=== PATIENT | female | born 1975 | race Asian ===

== ENCOUNTER → 2017-10-04 | Outpatient (CLI) | payer OTHER ==
[~2017-10-04] MED LIST: CETI10TA24 PO; CHOL40002 PO; CLOB15CR19 TP; FLUT9.9S16 NAS; MONT10TA6 PO
== END ==
LOC: STAR 09:26
PROVIDERS: ATTEND Otolaryngology
DX: Z02.9 Encounter for administrative examinations, unspecified (principal)

== ENCOUNTER 2017-10-16 07:00 | Day surgery (SDC) | payer OTHER ==
[~2017-10-16] VITALS: Ht 157.5 cm; Wt 67.5 kg
[2017-10-16] MEDS ORDERED: MIDAZOLAM 1 MG/ML, 2ML ONE (07:16)
[2017-10-16] MEDS ORDERED: FENTANYL PF 250 MCG/5ML ONE (07:16)
[2017-10-16] MEDS ORDERED: PROPOFOL 10 MG/ML, 20ML ONE (07:20)
[2017-10-16] MEDS ORDERED: ROCURONIUM 10 MG/ML,10ML ONE (07:21)
[2017-10-16] MEDS ORDERED: CEFAZOLIN 1,000 MG ONE ×2 (07:22)
[2017-10-16] MEDS ORDERED: WATER-INJECTION,STERILE 10 ML IV ONE (07:22)
[2017-10-16] MEDS ORDERED: GLYCOPYRROLATE 0.4 MG/2 ML, 2ML ONE (07:23)
[2017-10-16] MEDS ORDERED: NEOSTIGMINE 1 MG/ML, 10ML ONE (07:23)
[2017-10-16] MEDS ORDERED: OXYMETAZOLINE NASAL SPRAY 0.05%, 15ML ONE (07:24)
[2017-10-16] MEDS ORDERED: EPINEPHRINE 1 MG/ML, 1ML ONE (07:24)
[2017-10-16] MEDS ORDERED: FLUORESCEIN OPHTHALMIC 1 MG STRIP ONE (07:24)
[2017-10-16] MEDS ORDERED: EPINEPHRINE TOPICAL SOLN 1 MG/ML, 30ML ONE (07:24)
[2017-10-16] MEDS ORDERED: BACITRACIN OINT 500U/GM, 15 GM ONE (07:24)
[2017-10-16] MEDS ORDERED: LIDOCAINE-MPF 1%, 5ML ONE ×2 (07:24→07:25)
[2017-10-16] MEDS ORDERED: LACTATED RINGERS 1,000 ML IV SCH (07:29)
[2017-10-16] MEDS ORDERED: LIDOCAINE-MPF 1%, 2ML INFIL ONE (07:30)
[2017-10-16 07:32] LABS: HCG UR SG 1.027 (1.003-1.030)
[2017-10-16] MEDS ORDERED: LIDOCAINE-MPF 1%, 2ML ONE (07:32)
[2017-10-16] MEDS ORDERED: hydrALAzine 20 MG/ML, 1ML IV PRN (09:00)
[2017-10-16] MEDS ORDERED: FENTANYL PF 100 MCG/2ML IV PRN (09:00)
[2017-10-16] MEDS ORDERED: morphine SULFATE 10 MG/ML, 1ML IV PRN (09:00)
[2017-10-16] MEDS ORDERED: MEPERIDINE/PF 25MG/0.5ML IVPush PRN (09:00)
[2017-10-16] MEDS ORDERED: METOCLOPRAMIDE 5 MG/ML, 2ML IV PRN (09:00)
[2017-10-16] MEDS ORDERED: PROMETHAZINE 25 MG/ML, 1ML IV PRN (09:00)
[2017-10-16] MEDS ORDERED: HYDROmorphone 1 MG/ML, 1ML IV PRN (09:00)
[2017-10-16] MEDS ORDERED: PROMETHAZINE 12.5 MG SUPP PR PRN (09:00)
[2017-10-16] MEDS ORDERED: ONDANSETRON 2MG/ML, 2ML IVPush PRN (09:00)
[2017-10-16] MEDS ORDERED: ACETAMINOPHEN 325 MG TABLET PO PRN (09:00)
[2017-10-16] MEDS ORDERED: LABETALOL 5MG/ML, 20ML IV PRN (09:00)
[2017-10-16] MEDS ORDERED: OXYcodone 5 MG/5 ML ORAL.SOL UDC PO PRN (09:00)
[2017-10-16] MEDS ORDERED: ONDANSETRON 2MG/ML, 2ML ONE ×2 (09:22→11:40)
[2017-10-16] MEDS ORDERED: DEXAMETHASONE 4 MG/ML, 1ML ONE ×2 (09:22)
[2017-10-16] MEDS ORDERED: LIDOCAINE-MPF 1%, 5ML INFIL ONE (09:40)
[2017-10-16] MEDS ORDERED: SUGAMMADEX 200 MG/2 ML IVPush ONE (11:00)
[2017-10-16] MEDS ORDERED: SCOPOLAMINE PATCH, 1.5MG PATCH.TD72 TD ONE ×2 (12:24→12:30)
[2017-10-16] MEDS ORDERED: OXYMETAZOLINE NASAL SPRAY 0.05%, 15ML NAS ONE (13:00)
== END 2017-10-16 15:20 ==
LOC: OUT 07:00
PROVIDERS: ATTEND Otolaryngology
DX: J01.01 Acute recurrent maxillary sinusitis (principal); J32.0 Chronic maxillary sinusitis; J32.2 Chronic ethmoidal sinusitis
CPT/HCPCS: 31255; 31256; 61782; 81025; 88304; J0171; J0690; J1100; J2250; J2405; J2704; J2710; J3010; J3490; J7120